=== PATIENT | female | born 1960 | race Caucasian/White ===

== ENCOUNTER 2018-07-30 12:00 | Outpatient (CLI) | payer BC | END 2018-07-30 12:01 | disposition home or self-care (01) | LOC: BICRAD 12:00 | PROVIDERS: ATTEND Surgery | DX: M51.06 Intervertebral disc disorders with myelopathy, lumbar region (principal); M54.5 Low back pain | CPT/HCPCS: 72100 ==

== ENCOUNTER 2018-08-20 10:20 | Outpatient (CLI) | payer BC ==
--- NOTE | 2018-08-20 13:38 | MRI ---
LUMBAR SPINE MRI WITHOUT CONTRAST: HISTORY: Bilateral leg pain times several years. COMPARISON: None. TECHNIQUE: A lumbar spine MRI is performed without intravenous Gadolinium administration. Multisequential, mult iplanar imaging is performed. FINDINGS: There is intrinsic T1 and T2 hyperintensity involving the inferior endplate of L5 and the superior en dplate of S1, compatible with type II modic changes. No significant STIR hyperintensity to suggest e anna from fracture. No MR evidence of ligamentous injury. Symmetric signal intensity of the psoas muscles. Appropriate signal intensity of the solid organs. T2 hyperintensities in the right renal pelvis may represent parapelvic cysts. The conus medullaris terminates at the mid L1 level. T12-L1: Adequate disk hydration. No significant central canal stenosis. The foramina are patent. L1-L2: Adequate disk hydration. No significant central canal stenosis. The neural foramina are pat ent. L2-L3: Adequate disk hydration. No significant central canal stenosis. The neural foramina are pat ent bilaterally. L3-L4: Adequate disk hydration. No significant central canal stenosis. The neural foramina are pat ent bilaterally. Trace amount of fluid in both facet joints. L4-L5: Adequate disk hydration. Mild ligamentum flavum thickening and facet hypertrophy. No signif icant central canal stenosis. The neural foramina are patent bilaterally. L5-S1: There is a central disk protrusion with a small left paracentral component. Though there is no significant stenosis in the thecal sac, there is encroachment upon the left subarticular zone. Di sk material abuts and slightly displaces the traversing left S1 nerve root. There is mild encroachme nt upon the right subarticular zone. Disk material abuts but does not cause any significant mass eff ect upon the traversing right S1 nerve root. Possible small, sequestered disk fragment in the left l ateral recess, measuring 4 mm. Significance is uncertain. Moderate to severe right and left foramin al narrowing. IMPRESSION: Degenerative changes at L5-S1, as described above. There is no high-grade central canal stenosis. M oderate to severe bilateral foraminal narrowing at L5-S1. There are associated type II modic changes . POS: [facility]
== END 2018-08-20 10:21 | disposition home or self-care (01) ==
LOC: TBSIIMAG 10:20
PROVIDERS: ATTEND Surgery
DX: M51.16 Intervertebral disc disorders with radiculopathy, lumbar region (principal); M54.5 Low back pain; M99.83 Other biomechanical lesions of lumbar region; M99.84 Other biomechanical lesions of sacral region; M47.27 Other spondylosis with radiculopathy, lumbosacral region
CPT/HCPCS: 72148

== ENCOUNTER 2020-08-23 13:40 | Outpatient (CLI) | payer BC ==
--- NOTE | 2020-08-23 14:26 | MMO ---
Left Breast MAMMO Unilat Diag DDI LT+JULISSA. CLINICAL HISTORY: Patient is 59 years old and is seen for diagnostic exam. The patient has the following family history of breast cancer: mother, at age 87; maternal aunt, at age 65 and paternal aunt, at age 52. The patient has no personal history of cancer. The patient has a history of right Excisional Biopsy in 1998 - benign. VIEWS: The views performed were: left craniocaudal with tomosynthesis; left mediolateral oblique with tomosynthesis; and left mediolateral with tomosynthesis. FILMS COMPARED: The present examination has been compared to prior imaging studies performed at [facility] on 10/16/2017 and 08/23/2020, at [facility] on 11/09/2019, and at [facility] on 05/22/2016. This study has been interpreted with the assistance of computer-aided detection. MAMMOGRAM FINDINGS: There are scattered fibroglandular densities. Ultasound of area of concern was negative. There are no suspicious masses, suspicious calcifications, or new areas of architectural distortion. IMPRESSION: THERE IS NO MAMMOGRAPHIC EVIDENCE OF MALIGNANCY. A ROUTINE FOLLOW-UP MAMMOGRAM IN 1 YEAR IS RECOMMENDED. THE RESULTS OF THIS EXAM WERE SENT TO THE PATIENT. ACR BI-RADS Category 2 - Benign finding MAMMOGRAPHY NOTE: 1. A negative mammogram report should not delay a biopsy if a dominant of clinically suspicious mass is present. 2. Approximately 10% to 15% of breast cancers are not detected by mammography. 3. Adenosis and dense breasts may obscure an underlying neoplasm. Reported by: KEN SHERIFF MD Electonically Signed: [id number]
--- NOTE | 2020-08-23 14:27 | ULT ---
LEFT BREAST ULTRASOUND: Date: 08/23/2020 HISTORY: Vague palpable abnormality in the 1 o'clock position of the left breast. FINDINGS: Real-time imaging of the area of concern failed to show any cystic or solid mass. Mammogram showed no findings in this area. IMPRESSION: BI-RADS Category 2 - Benign findings.
== END 2020-08-23 13:41 | disposition home or self-care (01) ==
LOC: BICMAMMO 13:40
PROVIDERS: ATTEND Internal Medicine
DX: N63.20 Unspecified lump in the left breast, unspecified quadrant (principal)
CPT/HCPCS: G0279

== ENCOUNTER 2021-03-02 13:18 | Outpatient (CLI) | payer BC | END 2021-03-02 13:19 | disposition home or self-care (01) | LOC: BICMAMMO 13:18 | PROVIDERS: ATTEND Registered Nurse | DX: Z12.31 Encounter for screening mammogram for malignant neoplasm of breast (principal); Z13.820 Encounter for screening for osteoporosis; M85.88 Other specified disorders of bone density and structure, other site; Z78.0 Asymptomatic menopausal state; Z80.3 Family history of malignant neoplasm of breast; Z91.89 Other specified personal risk factors, not elsewhere classified | CPT/HCPCS: 77063; 77067; 77080 ==

== ENCOUNTER 2022-05-23 11:13 | Outpatient (CLI) | payer OTHER | END 2022-05-23 11:14 | disposition home or self-care (01) | LOC: BICMAMMO 11:13 | PROVIDERS: ATTEND Nurse Practitioner Family | DX: Z12.31 Encounter for screening mammogram for malignant neoplasm of breast (principal); N64.89 Other specified disorders of breast; Z91.89 Other specified personal risk factors, not elsewhere classified; Z80.3 Family history of malignant neoplasm of breast | CPT/HCPCS: 77063; 77067 ==

== ENCOUNTER 2022-06-01 09:32 | Outpatient (CLI) | payer OTHER | END 2022-06-01 09:33 | disposition home or self-care (01) | LOC: BICMAMMO 09:32 | PROVIDERS: ATTEND Nurse Practitioner Family | DX: R92.8 Other abnormal and inconclusive findings on diagnostic imaging of breast (principal) | CPT/HCPCS: 77066; G0279 ==